=== PATIENT | female | born 1995 ===

== ENCOUNTER 2020-10-23 05:20 | Inpatient (IN) | payer OTHER ==
[~2020-10-23] VITALS: Ht 154.9 cm; Wt 73.0 kg
[2020-10-23] MEDS ORDERED: PRENATAL TABLE1 EAC1 PO (05:58)
[2020-10-25] MEDS ORDERED: VITAMIN C500 M1 PO (07:11)
[2020-10-25] MEDS ORDERED: CEPHALEXIN500 MG PO (07:11)
[2020-10-25] MEDS ORDERED: IRON325 MG PO (07:12)
== END 2020-10-25 13:36 | disposition home or self-care (01) | DRG 807 ==
LOC: LDR 05:20 → OB/GYN 22:37
PROVIDERS: ADMIT Specialist; ATTEND Specialist
PROC: 10E0XZZ Delivery of Products of Conception, External Approach (ICD-10-PCS; principal; 2020-10-23)
PROC: 10907ZC Drainage of Amniotic Fluid, Therapeutic from Products of Conception, Via Natural or Artificial Opening (ICD-10-PCS; 2020-10-23)
PROC: 0W8NXZZ Division of Female Perineum, External Approach (ICD-10-PCS; 2020-10-23)
PROC: 3E0P7VZ Introduction of Hormone into Female Reproductive, Via Natural or Artificial Opening (ICD-10-PCS; 2020-10-23)
PROC: 4A1HXFZ Monitoring of Products of Conception, Cardiac Rhythm, External Approach (ICD-10-PCS; 2020-10-23)
DX: O80 Encounter for full-term uncomplicated delivery (principal); Z37.0 Single live birth; Z3A.39 39 weeks gestation of pregnancy; Z20.822 Contact with and (suspected) exposure to COVID-19